=== PATIENT | male | born 2000 | race Caucasian/White ===

== ENCOUNTER 2021-12-05 07:51 | Emergency (ER) | payer MEDICAID ==
[~2021-12-05] VITALS: Ht 180.3 cm; Wt 104.5 kg
[2021-12-05] MEDS ORDERED: KETOROLAC TROMETHAMINE 30 MG/ML VIAL IM ONE (08:15)
[2021-12-05 08:58] VITALS: BP 136/72
[2021-12-05] MEDS ORDERED: CYCL-448 PO (08:58)
== END 2021-12-05 09:18 | disposition home or self-care (01) ==
LOC: EMS 07:54
DX: M54.6 Pain in thoracic spine (principal)
CPT/HCPCS: 99283; 72072; 96372; J1885